=== PATIENT | female | born 1990 | race Hispanic/Latino ===

== ENCOUNTER 2019-05-17 08:54 | Inpatient (IN) | payer BC, SELFPAY ==
[2019-05-17] MEDS ORDERED: Iopamidol 370 76% 50 ML VIAL FS ONE (09:29)
[2019-05-17 09:46] LABS: BHCG - Serum Negative (NEGATIVE); Pregs Control Background? CLEAR/WHITE (CLR/WHITE); Pregs Control Bar Appear? YES (CONTROL BAR)
[2019-05-17 09:47] LABS: #Basophils 0.1 thou/uL (0.0-0.2); #Eosinphils 0.1 thou/uL (0.0-0.7); #Lymphocytes 2.2 thou/uL (1.20-3.40); #Monocytes 0.8 thou/uL (0.11-0.59); #Neutrophils 11.7 thou/uL (1.40-6.50); %Basophils 0.3 % (0.0-1.0); %Eosinophils 0.4 % (0.0-10.0); %Lymphocytes 14.9 % (21.0-51.0); %Monocytes 5.1 % (0.0-10.0); %Neutrophils 79.3 % (42.0-75.0); Hemoglobin 15.5 g/dL (12.0-16.0); Mean Corpuscular HGB CONC 34.6 g/dL (32.0-36.0); Mean Corpuscular Hemoglobin 28.9 pg (27.0-31.0); Mean Corpuscular Volume 83.5 fL (78.0-98.0); Mean Platelet Volume 8.4 fL (7.4-10.4); Platelet Count 198 thou/uL (130-400); RBC Distribution Width 12.2 % (11.5-14.5); Red Blood Cell (RBC) Count 5.35 mill/uL (4.20-5.40); White Blood Cell (WBC) Count 14.8 thou/uL (4.8-10.8)
[2019-05-17 09:54] LABS: ALT (SGPT) 30 U/L (8-55); AST (SGOT) 40 U/L (5-34); Albumin 3.8 g/dL (3.5-5.0); Alkaline Phosphatase 137 U/L (40-110); Anion Gap 14 mmol/L (10-20); BUN (Urea Nitrogen) 9 mg/dL (7.0-18.7); Bilirubin, Total 0.8 mg/dL (0.2-1.2); Calc. Creatinine Clearance 0 mL/min (70-130); Calcium 9.3 mg/dL (7.8-10.44); Carbon Dioxide 23 mmol/L (22-29); Chloride 102 mmol/L (98-107); Estimated GFR-MDRD Greater than 90; Globulin 5.4 g/dL (2.4-3.5); Glucose 184 mg/dL (70-105); Potassium 3.9 mmol/L (3.5-5.1); Protein, Total 9.2 g/dL (6.0-8.3); Sodium 135 mmol/L (136-145)
--- NOTE | 2019-05-17 12:11 | CT ---
CT NECK WITH IV CONTRAST: Date: 05/17/2019 Axial tomograms obtained with multiplanar reconstruction. INDICATION: Sore throat with body aches. FINDINGS: Review of parotid glands reveals an enhancing nodular mass in the superior right parotid which measur es up to 1.8 cm in the axial plane. There is another enhancing nodule along the inferior margin of th e right parotid which measures 1.7 cm. There are two or three tiny enhancing nodules in the left paro tid which have the appearance of small lymph nodes. The two larger enhancing masses in the right paro tid are indeterminate. Submandibular glands are unremarkable and symmetric. Thyroid unremarkable. Nasopharynx unremarkable. Oropharynx reveals symmetric palatine tonsils which are mildly prominent. There is no evidence of per itonsillar abscess or fluid collection. Hypopharynx and larynx unremarkable. Parapharyngeal space and retropharyngeal space unremarkable. Review of lymph node levels show bilateral cervical chain adenopathy. There are enlarged lymph nodes at all cervical levels. The adenopathy is slightly more pronounced on the right at Level II. The paranasal sinuses are well aerated. There is a mucus retention cyst measuring approximately 1.0 c m in the floor of the right maxillary antrum. IMPRESSION: 1. No evidence of peritonsillar abscess. [place] tonsils are mildly prominent, but symmetric. 2. Bilateral cervical chain adenopathy is slightly more prominent on the right. There are enlarged l ymph nodes at all cervical levels. 3. There are two enhancing nodular masses in the right parotid gland which will need follow-up. Thes e may represent prominent parotid lymph nodes; however, parotid mass lesions are not excluded. Recomm end ENT consultation and close follow-up regarding the parotid lesions. POS: BLANK
[2019-05-17] MEDS ORDERED: Clindamycin/D5W 900 mg/50 ml Premix Bag ONE (12:53)
[2019-05-17] MEDS ORDERED: Senokot S 8.6-50 MG TAB PO PRN (15:49)
[2019-05-17] MEDS ORDERED: Dextrose 5% in Water 1,000 ML IV PRN (15:53)
[2019-05-17] MEDS ORDERED: Dextrose 50% Abboject 50 ML SYRINGE SLOW IVP PRN (15:53)
[2019-05-17 16:04] VITALS: BMI 24.8
--- NOTE | 2019-05-17 16:25 | HP ---
CHIEF COMPLAINT: Generalized body aches and pains. HISTORY OF PRESENT ILLNESS: The patient is a very pleasant 28-year-old female, who initially presented to the hospital with complaints of generalized body aches and pains going on for the past 6 to 7 days. She stated that her initial symptoms started with the right eye pain and she was given some eye drops, which she does not recall the name, and that improved. After that, she started having significant body aches and pains and prior to that, she felt a few lymph nodes around her cervical area. She denies any fevers or chills. She states that she has been eating and drinking. Denies any sore throat. Denies any sick contacts or any travel history. The patient is a liver transplantation patient 7 years ago. The patient was given Keflex as an antibiotic. She took 9 out of the 10 days of the antibiotic. However, her symptoms have not improved. That is the other reason why she came into the hospital. PAST MEDICAL HISTORY: 1. She has a history of liver transplant. She stated that she does not recall the cause of it. This was after her delivery of her baby. 2. Type 1 diabetes. SOCIAL HISTORY: Does not drink. Does not smoke. No drug use. She is a full code. ALLERGIES: SHE HAS NO KNOWN DRUG ALLERGIES. HOWEVER, SHE DID TELL ME THAT AFTER TAKING THE KEFLEX, SHE DID GET SOME RASH AROUND HER UPPER EXTREMITY, WHICH IS RESOLVED. FAMILY HISTORY: Denies any family history of any heart disease, cancers, or strokes. MEDICATIONS: As of the following: She is on, 1. CellCept 1000 mg twice a day. 2. Tacrolimus 4 mg b.i.d. 3. She is on Levemir 40 units b.i.d. 4. She has been currently on Keflex. REVIEW OF SYSTEMS: All negative except for the ones mentioned in the HPI. LABORATORY RESULTS: Sodium of 135, potassium of 3.9, chloride of 102, BUN of 9, creatinine of 0.69. AST of 40, ALT of 30, alkaline phosphatase of 137. test was negative. Hematology; WBC of 14.8, platelets of 198, hemoglobin of 15.5, neutrophils of 79.3. PHYSICAL EXAMINATION: VITAL SIGNS: As of the following; temperature of 98.8, heart rate of 102, blood pressure of 107/68, 16 respirations. GENERAL: She is awake, alert, and oriented x3. She does not appear in distress. CARDIOVASCULAR: S1 and S2 present. Mildly tachycardic. LUNGS: Clear to auscultation. No rhonchi or wheezes noted. ABDOMEN: Soft and nontender. Bowel sounds are present x2. EXTREMITIES: No edema. Pedal pulses are present x2. HEENT: The patient does have a significant pretty large cervical lymphadenopathy noted to her right cervical area. No pain upon palpation around her tragus or the back of around her mastoid area. No erythema noted in her oropharynx area. She does not have any supraclavicular lymph nodes either noted or palpable. She also underwent a soft tissue CT neck, which indicated two enhancing nodular masses in the right parotid gland and bilateral cervical chain adenopathy. ASSESSMENT AND PLAN: The patient is a very pleasant 28-year-old female, who presents to the hospital with generalized body aches and pains. 1. Sepsis, unclear etiology. She does have tachycardia and elevated white blood cells. She does have some abnormalities noted in her soft tissue CT of the neck. Her blood cultures have been drawn. She has been tested for influenza and Streptococcus A. Her Streptococcus initial one is negative. Her influenza one is also negative. Her insulin swab is also negative. I will start her on some clindamycin. We will get an ENT consult. She is currently in immunocompromised state. 2. Liver transplant. I will get a tacrolimus level. We will continue her immunosuppressive medications for now. I will talk with her fire coordinator to see if we could stop it. However, I think that would not be recommended. 3. Diabetes. We will continue her Levemir. 4. Deep venous thrombosis prophylaxis. We will put the patient on sequential compression devices. Job ID: [id number]
[2019-05-17] MEDS: Sodium Chloride 0.9% 1,000 ML IV SCH ×2 (16:42→22:38)
--- NOTE | 2019-05-17 17:56 | RAD ---
RADIOGRAPH CHEST 2 VIEWS: DATE: 05/17/2019 HISTORY: 28-year-old female with sepsis FINDINGS: There is no airspace density, pulmonary edema, pleural effusion, pneumothorax, or cardiomegaly. IMPRESSION: No acute cardiopulmonary findings.
[2019-05-17] MEDS ORDERED: oxyCODONE 5 MG TAB PO PRN (18:11)
[2019-05-17] MEDS: Tacrolimus 1 MG CAP PO SCH (20:27)
[2019-05-17] MEDS: Magnesium Oxide 400 MG TAB PO SCH (20:27)
[2019-05-17] MEDS: Insulin Glargine 40 UNITS in Pre-Filled Syringe 1 EACH SC SCH (20:28)
[2019-05-17] MEDS ORDERED: Clindamycin/D5W 600 MG in Premix Bag 1 BAG IVPB SCH (21:00)
[2019-05-17] MEDS ORDERED: Mycophenolate 250 MG CAP PO SCH (21:00)
[2019-05-17] MEDS ORDERED: Non-Formulary Item 1 EACH (Levemir Flexpen [Levemir Flexpen] 40 UNITS) SC SCH (21:00)
[2019-05-17 22:34] LABS: Bacteria/HPF None Seen HPF (None Seen); Bilirubin Negative (Negative); Blood, Urine 1+ (Negative); Clarity Clear (Clear); Glucose, Urine (Dipstick) Greater than 1000 mg/dL (Negative); Leukocyte Negative Leu/uL (Negative); Nitrite Negative (Negative); Protein, Urine (Dipstick) Negative (Neg-Trace); RBC/HPF 21-50 HPF (0-3); Squamous Epithelial 0-3 HPF (0-3); Urobilinogen Normal mg/dL (Less than 2); WBC/HPF 0-3 HPF (0-3)
[2019-05-17 22:36] LABS: Urine Culture Reflex No No
[2019-05-17] MEDS: MEROPENEM 1 GM/50 ML 1 GM in Premix Bag 1 BAG IVPB SCH (22:36)
[2019-05-18] MEDS: Ketorolac Tromethamine 10 MG TAB PO SCH ×4 (00:10→17:18)
[2019-05-18] MEDS: Sodium Chloride 0.9% 1,000 ML IV SCH ×3 (01:00→17:15)
[2019-05-18 05:39] LABS: #Eosinphils 0.1 thou/uL (0.0-0.7); #Lymphocytes 2.1 thou/uL (1.20-3.40); #Monocytes 0.8 thou/uL (0.11-0.59); #Neutrophils 6.9 thou/uL (1.40-6.50); %Basophils 0.1 % (0.0-1.0); %Eosinophils 1.4 % (0.0-10.0); %Lymphocytes 20.9 % (21.0-51.0); %Monocytes 8.2 % (0.0-10.0); %Neutrophils 69.4 % (42.0-75.0); Mean Corpuscular Hemoglobin 28.4 pg (27.0-31.0); Mean Corpuscular Volume 83.6 fL (78.0-98.0); Platelet Count 165 thou/uL (130-400); RBC Distribution Width 12.1 % (11.5-14.5); Red Blood Cell (RBC) Count 4.58 mill/uL (4.20-5.40); White Blood Cell (WBC) Count 9.9 thou/uL (4.8-10.8)
[2019-05-18] MEDS: MEROPENEM 1 GM/50 ML 1 GM in Premix Bag 1 BAG IVPB SCH ×2 (05:57→13:36)
[2019-05-18 06:09] LABS: ALT (SGPT) 20 U/L (8-55); AST (SGOT) 37 U/L (5-34); Albumin 2.9 g/dL (3.5-5.0); Alkaline Phosphatase 107 U/L (40-110); Anion Gap 8 mmol/L (10-20); BUN (Urea Nitrogen) 9 mg/dL (7.0-18.7); Bilirubin, Total 0.6 mg/dL (0.2-1.2); Calc. Creatinine Clearance 142 mL/min (70-130); Calcium 8.2 mg/dL (7.8-10.44); Carbon Dioxide 25 mmol/L (22-29); Chloride 107 mmol/L (98-107); Estimated GFR-MDRD Greater than 90; Globulin 4.4 g/dL (2.4-3.5); Glucose 210 mg/dL (70-105); Potassium 3.8 mmol/L (3.5-5.1); Protein, Total 7.3 g/dL (6.0-8.3); Sodium 136 mmol/L (136-145)
[2019-05-18] MEDS: Tacrolimus 1 MG CAP PO SCH ×2 (08:25→20:51)
[2019-05-18] MEDS: Mycophenolate 250 MG CAP PO SCH ×2 (08:25→20:51)
[2019-05-18] MEDS: Enoxaparin Sodium 40 MG/0.4 ML SYRINGE SC SCH (08:25)
[2019-05-18] MEDS: Magnesium Oxide 400 MG TAB PO SCH ×3 (08:25→20:52)
[2019-05-18] MEDS: Insulin Glargine 40 UNITS in Pre-Filled Syringe 1 EACH SC SCH ×2 (08:25→20:52)
--- NOTE | 2019-05-18 10:33 | PDOC.HOSPP ---
- Subjective Encounter Date: 05/18/19 Encounter Time: 10:15 Subjective: pt up in bed feels better today. - Objective Vital Signs & Weight: Vital Signs (12 hours) Temp Pulse Resp BP BP Pulse Ox 05/18/19 08:00 97 05/18/19 07:23 98.6 F 110 H 20 113/75 97 05/18/19 04:24 98.1 F 86 20 104/68 99 05/18/19 00:14 110/75 05/17/19 23:54 98.5 F 98 20 97/63 97 Weight Weight 149 lb 8 oz I&O: 05/17/19 05/18/19 05/19/19 06:59 06:59 06:59 Intake Total 450 240 Balance 450 240 Result Diagrams: 05/18/19 05:12 05/18/19 05:12 Additional Labs: Accuchecks 05/18/19 05/17/19 05/17/19 04:26 19:30 16:14 POC Glucose 222 H 279 H 151 H Hospitalist ROS - Review of Systems Respiratory: denies: cough, dry, shortness of breath, hemoptysis, SOB with excertion, pleuritic pain, sputum, wheezing, other Cardiovascular: denies: chest pain, palpitations, orthopnea, paroxysmal noc. dyspnea, edema, light headedness, other - Medication Medications: Active Medications Generic Name Dose Route Start Last Admin Trade Name Freq PRN Reason Stop Dose Admin Enoxaparin Sodium 40 mg 05/18/19 09:00 05/18/19 08:25 Lovenox SC 40 mg 0900 RUBI Administration Sodium Chloride 1,000 mls @ 150 mls/hr 05/17/19 16:00 05/18/19 01:00 Normal Saline 0.9% IV 1,000 mls .[id number] RUBI Administration Insulin Glargine 40 units/ 0.4 mls @ 0 mls/hr 05/17/19 21:00 05/18/19 08:25 Miscellaneous Medication SC 0.4 mls BID RUBI Administration Meropenem 1 gm/ Device 50 mls @ 100 mls/hr 05/17/19 22:00 05/18/19 05:57 IVPB 50 mls Q8HR RUBI Administration Ketorolac Tromethamine 10 mg 05/17/19 23:59 05/18/19 05:58 Toradol PO 05/22/19 23:59 10 mg Q6HR RUBI Administration Magnesium Oxide 400 mg 05/17/19 21:00 05/18/19 08:25 Magnesium Oxide PO 400 mg TID RUBI Administration Mycophenolate Mofetil 500 mg 05/17/19 21:35 05/18/19 08:25 Cellcept PO 500 mg BID RUBI Administration Oxycodone HCl 5 mg 05/17/19 18:11 05/17/19 18:38 Oxycodone Ir PO 5 mg Q6H PRN Administration Mild-Moderate Pain (1-5) Tacrolimus 4 mg 05/17/19 21:00 05/18/19 08:25 Prograf PO 4 mg BID RUBI Administration - Exam Neck - other findings: right cervical lymphadenopathy Heart: negative: RRR, no murmur, no gallops, no rubs, normal peripheral pulses, irregular, diminshed peripheral pulses, murmur present, II/IV, III/IV Respiratory: negative: CTAB, no wheezes, no rales, no ronchi, normal chest expansion, no tachypnea, normal percussion, rales, rhonchi, tachypneic, wheezes Gastrointestinal: negative: soft, non-tender, non-distended, normal bowel sounds , no palpable masses, no hepatomegaly, no splenomegaly, no bruit, no guarding, no rigidity, tender to palpation, distended, diminished bowl sounds, voluntary guarding Hosp A/P (1) Sepsis Code(s): A41.9 - SEPSIS, UNSPECIFIED ORGANISM Status: Acute (2) Cervical lymphadenopathy Code(s): R59.0 - LOCALIZED ENLARGED LYMPH NODES Status: Acute (3) Liver transplant disorder Code(s): T86.40 - UNSPECIFIED COMPLICATION OF LIVER TRANSPLANT Status: Acute (4) Sinus tachycardia Code(s): R00.0 - TACHYCARDIA, UNSPECIFIED Status: Acute - Plan will continue meropenam. per ENT no tx she can follow up with them as outpatient for a FNA for her parotid gland. will continue iv fluids. strep negative, influenza negative.
[2019-05-18] MEDS: HumaLOG 300 UNITS/3 ML VIAL SC PRN (11:08)
--- NOTE | 2019-05-18 19:35 | CON ---
DATE OF CONSULTATION: 05/18/2019 REASON FOR CONSULTATION: Lymphadenitis with conjunctivitis and myalgias. HISTORY OF PRESENT ILLNESS: A 28-year-old patient, whom I had seen many years ago when she had presented with acute liver failure to this hospital and was transferred to [place], had an emergency liver transplant, which has remained functional for the past many years with regular followups in [place] with labs every 3 months. The patient was in her usual state of health, excellent compliance with her medications, working at [employer] for the past 2 years, and over the past 3 weeks, has noticed conjunctivitis in the right eye associated with lymphadenitis with tender lymph nodes in the right lateral neck. This also presents with myalgias in arms and legs and thighs. The patient never reported fever. No headaches. No sore throat, odynophagia, or dysphagia. No dental pain. No back pain. No cough or sputum production. No abdominal pain. No diarrhea. No genitourinary symptoms. No joint symptoms. No neurological symptoms. MEDICAL HISTORY: Gestational diabetes, liver failure, liver transplant a few years ago in [place]. SOCIAL HISTORY: Does not smoke. No drug use. Works at [employer]. Lives in the area. ALLERGIES: NONE. MEDICATIONS: Had been on; 1. CellCept. 2. Prograf. Current medications include; 1. Enoxaparin. 2. Insulin. 3. Ketorolac. 4. Meropenem. 5. Oxycodone. 6. Tacrolimus. PHYSICAL EXAMINATION: VITAL SIGNS: She has been afebrile since admission. BP 115/77, pulse 97, respirations 20, O2 saturation 100. SKIN: Normal. The patient has a tender 1 cm mobile right lateral neck lymphadenitis. There are smaller ones on the left side, but they are not tender. HEENT: There is evidence of conjunctival hyperemia in the right ocular area. Pupils are equal. Nasal passages are patent. Oral cavity is normal. Teeth in good shape. NECK: Supple. No jugular vein distention or carotid bruits. LUNGS: Symmetric, clear breath sounds. HEART: S1 and S2, regular rate. No S3 or S4. ABDOMEN: Soft. Not distended or tender. No ascites. No bladder distention. MUSCULOSKELETAL: No joint inflammatory activity. She has tenderness in the muscles in arms and legs. LABORATORY DATA: On arrival, her white cell count was 14.8, hemoglobin 15, platelets 198 with 79% neutrophils. Sodium 136, creatinine 0.63, AST 37, albumin 2.9. Urine with 0 to 3 wbc's. Cultures negative thus far. Group A Streptococcus screen negative and culture was negative as well. ASSESSMENT: Liver transplant patient, on Prograf and CellCept well until three weeks ago, now with conjunctivitis and lymphadenitis and myalgias. DISCUSSION: The differential diagnosis includes Bartonella henselae infection, although no obvious exposure is acknowledged by the patient, versus Salmonella from exposure in the workplace, or tuberculosis, which is less likely. Viral infections, particularly EBV usually are not associated with conjunctivitis, but we will go ahead and check for it as well. Histoplasma and Cryptococcus neoformans are less likely. Cytomegalovirus is less likely. Noninfectious syndromes including autoimmune syndromes associated with myositis will need to be considered depending on the CPK results. Trichinella is a possibility. Typically with Trichinella spiralis, one sees eosinophilia, which is not present in her case. Lymphoma is less likely in view of the acuity of onset and the tenderness of the lymph nodes, but we will have to reconsider depending on clinical progress. At this point, we will switch her to doxycycline, discontinue meropenem. Check serologies for Bartonella and the serologies for the viruses mentioned. I believe QuantiFERON has been submitted to as well. Job ID: [id number]
[2019-05-18] MEDS ORDERED: HumaLOG 300 UNITS/3 ML VIAL SC PRN (19:58)
[2019-05-18] MEDS: Doxycycline 100 MG CAP PO SCH (20:51)
[2019-05-19] MEDS: Ketorolac Tromethamine 10 MG TAB PO SCH ×3 (00:21→12:08)
[2019-05-19] MEDS: Sodium Chloride 0.9% 1,000 ML IV SCH ×3 (00:22→13:37)
[2019-05-19 06:50] LABS: #Eosinphils 0.1 thou/uL (0.0-0.7); #Monocytes 0.9 thou/uL (0.11-0.59); #Neutrophils 8.7 thou/uL (1.40-6.50); %Basophils 0.1 % (0.0-1.0); %Eosinophils 0.9 % (0.0-10.0); %Lymphocytes 17.1 % (21.0-51.0); %Monocytes 7.3 % (0.0-10.0); %Neutrophils 74.5 % (42.0-75.0); Hemoglobin 13.5 g/dL (12.0-16.0); Mean Corpuscular HGB CONC 33.9 g/dL (32.0-36.0); Mean Corpuscular Hemoglobin 28.3 pg (27.0-31.0); Mean Corpuscular Volume 83.5 fL (78.0-98.0); Mean Platelet Volume 8.1 fL (7.4-10.4); Platelet Count 174 thou/uL (130-400); RBC Distribution Width 12.1 % (11.5-14.5); Red Blood Cell (RBC) Count 4.78 mill/uL (4.20-5.40); White Blood Cell (WBC) Count 11.6 thou/uL (4.8-10.8)
[2019-05-19 07:11] LABS: ALT (SGPT) 27 U/L (8-55); AST (SGOT) 50 U/L (5-34); Alkaline Phosphatase 123 U/L (40-110); Anion Gap 11 mmol/L (10-20); BUN (Urea Nitrogen) 6 mg/dL (7.0-18.7); Bilirubin, Total 0.4 mg/dL (0.2-1.2); Calc. Creatinine Clearance 169 mL/min (70-130); Calcium 8.6 mg/dL (7.8-10.44); Carbon Dioxide 24 mmol/L (22-29); Chloride 108 mmol/L (98-107); Estimated GFR-MDRD Greater than 90; Globulin 4.4 g/dL (2.4-3.5); Glucose 95 mg/dL (70-105); Potassium 3.5 mmol/L (3.5-5.1); Protein, Total 7.4 g/dL (6.0-8.3); Sodium 139 mmol/L (136-145)
[2019-05-19 08:13] LABS: EBV VCA IgM <36.0 U/mL (0.0-35.9); Nuclear AG IgG (EBNA) AB >600.0 U/mL (0.0-17.9)
[2019-05-19] MEDS: Enoxaparin Sodium 40 MG/0.4 ML SYRINGE SC SCH (08:48)
[2019-05-19] MEDS: Doxycycline 100 MG CAP PO SCH (08:48)
[2019-05-19] MEDS: Tacrolimus 1 MG CAP PO SCH (08:48)
[2019-05-19] MEDS: Magnesium Oxide 400 MG TAB PO SCH (08:49)
[2019-05-19] MEDS: Mycophenolate 250 MG CAP PO SCH (08:51)
[2019-05-19] MEDS ORDERED: Insulin Glargine 50 UNITS in Pre-Filled Syringe 1 EACH SC SCH ×2 (09:00→21:00)
[2019-05-19 11:19] VITALS: BP 112/69; TEMP 98.1
[2019-05-19] MEDS: HumaLOG 300 UNITS/3 ML VIAL SC PRN (12:09)
[2019-05-19] MEDS ORDERED: Cyclobenzaprine 10 MG TAB PO PRN (14:04)
--- NOTE | 2019-05-19 18:35 | DIS ---
DATE OF ADMISSION: 05/17/2019 DATE OF DISCHARGE: 05/19/2019 DISCHARGE DIAGNOSES: 1. Sepsis of unclear etiology, possible viral. 2. Cervical lymphadenopathy. 3. Liver transplant candidate. 4. Tachycardia, resolved. HOSPITAL COURSE: The patient is a 28-year-old female, who initially presented to the hospital with complaints of generalized body aches and pains and right cervical lymphadenopathy. She underwent a CT with IV contrast which indicated no evidence of peritonsillar abscess. However, indicated bilateral cervical chain adenopathy greater on the right compared to the left. I did speak with ENT, who did not think any further intervention in terms of not significant changes on her CT neck. She did have 2 enhancing nodular masses in the right parotid gland. I did speak with ENT about this and they recommended to follow up as an outpatient and the patient has been advised to do so and phone numbers have been provided. The patient initially was put on broad-spectrum antibiotics. I did consult Infectious Disease. She felt great the next day. She was transitioned to doxycycline and she will be discharged home. We did send a significant amount of immunocompromised studies, which included CMV, Bartonella, [place] virus, histoplasma, HIV, and QuantiFERON. The patient was asked to follow up with her primary and also the results of these with Dr. Barton. She also will follow up with Dr. Batista. PHYSICAL EXAMINATION: VITAL SIGNS: Temperature 98.1, pulse 94, respirations 18, 98% on room air, blood pressure 112/69. GENERAL: She is awake, alert, and oriented x3. Does not appear in distress CV: S1 and S2 present. No murmurs, rubs, or gallops. MEDICATIONS: I have restarted her back her CellCept and her tacrolimus. She should also continue Levemir 45 units daily, tramadol 25 mg twice a day, doxycycline 100 mg twice a day for 14 days, and Flexeril since she has been having some muscle pain to her bilateral upper neck area, this has been going on for the past 10 days. Her CK level on discharge was normal. Job ID: [id number]
[2019-05-20 03:12] LABS: CMV IgG AB Greater than 10.00 U/mL (0.00-0.59)
[2019-05-21 07:12] LABS: QuantiFERON-TB Gold Plus Negative (Negative)
[2019-05-21 11:37] LABS: Bartonella henselae IgG Negative titer (Neg:<1:320); Bartonella henselae IgM Negative titer (Neg:<1:100); Bartonella quintana IgG Negative titer (Neg:<1:320); Bartonella quintana IgM Negative titer (Neg:<1:100)
== END 2019-05-19 15:06 | disposition home or self-care (01) | DRG 872 ==
LOC: ERS 08:54 → T4-B 15:30
PROVIDERS: ADMIT Internal Medicine; ATTEND Internal Medicine
DX: A41.89 Other specified sepsis (principal); Z94.4 Liver transplant status; R59.0 Localized enlarged lymph nodes; E10.9 Type 1 diabetes mellitus without complications; H10.9 Unspecified conjunctivitis; M79.10 Myalgia, unspecified site; Z79.899 Other long term (current) drug therapy; Z79.4 Long term (current) use of insulin
CPT/HCPCS: 36415; 36416; 70491; 71046; 80053; 81001; 82550; 83605; 84703; 85025; 86480; 86611; 86644; 86645; 86664; 86665; 87040; 87081; 87385; 87430; 87536; 87798; 87804; 96361; 96365; 96366; J1650; J1815; J2185; J3490; J7507; J7517; Q9967

== ENCOUNTER 2020-12-30 08:22 | Emergency (ER) | payer BC, SELFPAY ==
[2020-12-30 09:15] LABS: #Monocytes 0.6 thou/uL (0.11-0.59); #Neutrophils 3.4 thou/uL (1.40-6.50); %Basophils 0.2 % (0.0-1.0); %Eosinophils 0.2 % (0.0-10.0); %Lymphocytes 20.6 % (21.0-51.0); Hemoglobin 14.2 g/dL (12.0-16.0); Mean Corpuscular HGB CONC 33.1 g/dL (32.0-36.0); Mean Corpuscular Volume 84.4 fL (78.0-98.0); Platelet Count 125 thou/uL (130-400); Red Blood Cell (RBC) Count 5.09 mill/uL (4.20-5.40)
[2020-12-30 09:20] LABS: BHCG - Serum Negative (NEGATIVE); Pregs Control Background? CLEAR/WHITE (CLR/WHITE); Pregs Control Bar Appear? YES (CONTROL BAR)
[2020-12-30 09:31] LABS: ALT (SGPT) 49 U/L (8-55); AST (SGOT) 53 U/L (5-34); Albumin 3.6 g/dL (3.5-5.0); Alkaline Phosphatase 155 U/L (40-110); Anion Gap 11 mmol/L (10-20); BUN (Urea Nitrogen) 7 mg/dL (7.0-18.7); Bilirubin, Total 0.6 mg/dL (0.2-1.2); Calc. Creatinine Clearance 0 mL/min (70-130); Carbon Dioxide 26 mmol/L (22-29); Chloride 103 mmol/L (98-107); Globulin 4.7 g/dL (2.4-3.5); Glucose 237 mg/dL (70-105); Potassium 3.7 mmol/L (3.5-5.1); Protein, Total 8.3 g/dL (6.0-8.3); Sodium 136 mmol/L (136-145)
[2020-12-30 10:33] LABS: Bilirubin Negative (Negative); Blood, Urine Negative (Negative); Clarity Clear (Clear); Glucose, Urine (Dipstick) 300 mg/dL (Negative); Ketone, Urine 10 mg/dL (Negative); Leukocyte 75 Leu/uL (Negative); Nitrite Negative (Negative); Protein, Urine (Dipstick) 20 mg/dL (Neg-Trace); RBC/HPF 0-3 HPF (0-3); Specific Gravity, Urine 1.019 (1.002-1.036)
[2020-12-30 10:40] LABS: Bacteria/HPF Rare-Few HPF (None Seen)
[2020-12-30] MEDS ORDERED: Ketorolac Tromethamine 30 MG/ML VIAL ONE (10:43)
[2020-12-31 14:26] LABS: SARS-CoV-2 PCR by NAA Not Detected (NotDetected)
== END 2020-12-30 12:10 | disposition home or self-care (01) ==
LOC: ERS 08:22
DX: J06.9 Acute upper respiratory infection, unspecified (principal); R59.0 Localized enlarged lymph nodes; Z20.822 Contact with and (suspected) exposure to COVID-19; E10.9 Type 1 diabetes mellitus without complications
CPT/HCPCS: 36416; 71045; 76536; 80053; 81003; 81015; 83605; 84703; 85025; 86140; 87081; 87430; 93005; 96374; J1885; U0003; U0005

== ENCOUNTER 2022-10-01 15:22 | Outpatient (CLI) | payer BC | END 2022-10-01 15:23 | disposition home or self-care (01) | LOC: BICULT 15:22 | PROVIDERS: ATTEND Nurse Practitioner Family | DX: Z48.23 Encounter for aftercare following liver transplant (principal); Z41.8 Encounter for other procedures for purposes other than remedying health state; E11.9 Type 2 diabetes mellitus without complications; Z94.4 Liver transplant status; R16.1 Splenomegaly, not elsewhere classified | CPT/HCPCS: 76705 ==